=== PATIENT | female | born 1980 | race African-American/Black ===

== ENCOUNTER 2022-07-09 02:13 | Emergency (ER) | payer MEDICAID ==
[~2022-07-09] VITALS: Ht 167.6 cm; Wt 79.5 kg
[2022-07-09 02:22] VITALS: BP 117/75
[2022-07-09] MEDS ORDERED: ONDANSETRON 4MG ODT PO ONE (04:15)
[2022-07-09] MEDS ORDERED: ONDA4TAB50 MT (04:32)
== END 2022-07-09 04:47 | disposition home or self-care (01) ==
LOC: ER 02:13
DX: B34.9 Viral infection, unspecified (principal); I49.9 Cardiac arrhythmia, unspecified; Z88.5 Allergy status to narcotic agent
CPT/HCPCS: 93005; 99283; Q0162

== ENCOUNTER 2022-08-11 21:16 | Emergency (ER) | payer MEDICAID ==
[~2022-08-11] VITALS: Ht 167.6 cm; Wt 78.2 kg
[~2022-08-11 21:16] MED LIST: ONDA4TAB50 MT
[2022-08-11 21:17] VITALS: BP 119/74
[2022-08-11] MEDS ORDERED: LIDO700A30 TP (23:19)
[2022-08-11] MEDS ORDERED: IBUP-2029 MT (23:19)
== END 2022-08-11 23:34 | disposition home or self-care (01) ==
LOC: ER 21:16
DX: S13.9XXA Sprain of joints and ligaments of unspecified parts of neck, initial encounter (principal); V43.52XA Car driver injured in collision with other type car in traffic accident, initial encounter; Y93.89 Activity, other specified; Y92.89 Other specified places as the place of occurrence of the external cause; Y99.8 Other external cause status; Z88.5 Allergy status to narcotic agent
CPT/HCPCS: 71045; 99284

== ENCOUNTER 2025-02-09 19:59 | Emergency (ER) | payer MEDICAID ==
[~2025-02-09] VITALS: Ht 170.2 cm; Wt 63.2 kg
[~2025-02-09 19:59] MED LIST changes: +IBUP-2029 MT; +LIDO700A30 TP
[2025-02-09 20:08] VITALS: BP 138/78; TEMP 37; O2SAT 99
[2025-02-09 20:11] VITALS: PULSE 89; RESP 18; O2SAT 99
[2025-02-09] MEDS ORDERED: KETOROLAC 30MG/ML VIAL IV STA (22:34)
[2025-02-09] MEDS ORDERED: DEXAMETHASONE 4MG/ML 1ML VIAL IV ONE (22:45)
[2025-02-09] MEDS ORDERED: CLINDAMYCIN 600 MG in DEXTROSE 5% WATER 50 ML IV ONE (22:45)
[2025-02-09] MEDS: KETOROLAC 30MG/ML VIAL IV NR (23:39)
[2025-02-09] MEDS: DEXAMETHASONE 4MG/ML 1ML VIAL IV NR (23:43)
[2025-02-09] MEDS: CLINDAMYCIN 600MG PREMIX 50 ML IV NR (23:43)
[2025-02-09] MEDS: SODIUM CHLORIDE 0.9% 1,000 ML IV ONE (23:43)
== END 2025-02-10 00:28 | disposition left against medical advice (07) ==
LOC: ER 19:59
DX: J36 Peritonsillar abscess (principal); Z88.5 Allergy status to narcotic agent; Z79.899 Other long term (current) drug therapy
CPT/HCPCS: 99283; 96374; J1885; J7030; J3490; J7060